=== PATIENT | male | born 1995 | race Caucasian/White ===

== ENCOUNTER 2017-03-05 21:19 | Emergency (ER) | payer OTHER ==
[2017-03-05 21:25] VITALS: TEMP 98.1
--- NOTE | 2017-03-05 22:02 | EDPHY ---
H & P Stated Complaint: sternal CP, left shoulder pain after hocky inj Time Seen by Provider: 03/05/17 21:34 HPI/ROS: CHIEF COMPLAINT: Left-sided chest pain HISTORY OF PRESENT ILLNESS: The patient presents the ED with complaints of left -sided anterior chest wall pain. The patient reportedly was playing hockey on Thursday when he was checked aggressively. He has had pain and discomfort since that time. It is worsened with movement as well as deep breaths. The patient denies any focal numbness or weakness. He denies additional injury. REVIEW OF SYSTEMS: A comprehensive 10 point review of systems is otherwise negative aside from elements mentioned in the history of present illness. Source: Patient Exam Limitations: No limitations - Personal History Current Tetanus/Diphtheria Vaccine: Yes Tetanus Vaccine Date: WITHIN 10 YRS - Medical/Surgical History Hx Asthma: No Hx Chronic Respiratory Disease: No Hx Diabetes: No Hx Cardiac Disease: No Hx Renal Disease: No Hx Cirrhosis: No Hx Alcoholism: No Hx HIV/AIDS: No Hx Splenectomy or Spleen Trauma: No Other PMH: shoulder fx. thoratic outlet syndrome,. 1st rib resection,. hx of blood clots - Social History Smoking Status: Never smoked - Physical Exam Exam: General Appearance: Alert, no distress Head: Atraumatic Eyes: Pupils equal, round, reactive ENT, Mouth: No hemotympanum, no oral trauma Neck: Nontender, trachea midline Respiratory: Tenderness to palpation left anterior chest wall along the sternal chondral junction. No subcutaneous emphysema Cardiovascular: Regular rate and rhythm Abdomen: Abdomen is soft and nontender, pelvis stable Skin: No lacerations, No abrasion Back: No midline T/L/S pain Extremities: Nontender, full range of motion Neurological: A&Ox3, normal motor function, normal sensory exam Constitutional: Initial Vital Signs Temperature (C) 36.7 C 03/05/17 21:20 Heart Rate 67 03/05/17 21:20 Respiratory Rate 18 03/05/17 21:20 Blood Pressure 142/79 H 03/05/17 21:20 O2 Sat (%) 98 03/05/17 21:20 O2 Delivery Mode Room Air Allergies/Adverse Reactions: No Known Allergies Allergy (Verified 03/05/17 21:24) Home Medications: Medication Instructions Recorded NK [No Known Home Meds] 03/05/17 Medical Decision Making - Diagnostics Imaging Results: Chest x-ray PA lateral: Images reviewed by myself, negative for rib fracture, pneumothorax, hemothorax. ED Course/Re-evaluation: The patient presents to the ED for evaluation of chest wall pain following an injury playing hockey. The patient has no evidence of an obvious rib fracture, pneumothorax or hemothorax on exam. His vital signs are stable. 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 He denies any asymmetric calf pain or swelling. He has no abnormalities noted in his vital signs. The patient will be advised to continue to use ibuprofen as needed for management of his symptoms. He should return to the ED for markedly worsening symptoms or other concerns. Differential Diagnosis: Differential diagnosis considered includes rib fracture, pneumothorax, sternal fracture, hemothorax, chest wall contusion Departure - Departure Disposition: Home, Routine, Self-Care Clinical Impression: Chest wall pain Condition: Good Instructions: Chest Wall Pain (ED) Additional Instructions: 1. Take Ibuprofen or Motrin 600 mg by mouth three times a day. 2. Return to the ED for markedly worsening symptoms, difficulty breathing or other concerns. Referrals: Abel Jorge MD [Primary Care Provider] - As per Instructions
[2017-03-05 22:30] VITALS: BP 119/65; PULSE 77; RESP 16; O2SAT 97
== END 2017-03-05 22:31 | disposition home or self-care (01) ==
DX: R07.89 Other chest pain (principal)